=== PATIENT | male | born 1980 | race Caucasian/White ===

== ENCOUNTER 2020-10-19 11:07 | Inpatient (IN) | payer BC ==
[~2020-10-19] VITALS: Ht 190.5 cm; Wt 145.3 kg
[~2020-10-19 11:07] MED LIST: CIPROFLOXACIN500 MG PO; FLAGYL500 MG PO; LOMOTIL 0.025 M1 TA1 PO; METFORMIN1000 MG PO; NAPROSYN500 MG PO; NOVOLIN N100 U/ML SC; NOVOLOG 70/30 M10 ML SC; ZESTRIL2.5 MG PO; ZOFRAN ODT4 MG SL; ZOFRAN4 MG PO
[2020-10-19 11:33] VITALS: BP 160/86
[2020-10-19 12:19] LABS: BASO % 0.2 % (0.0-1.0); EOS % 0.2 % (1.0-4.0); HEMATOCRIT 41.5 % (42.0-52.0); LYMPH % 22.3 % (27.0-41.0); MEAN CELL VOLUME 86.1 fl (80.0-94.0); MEAN CORPUSCULAR HGB 28.2 pg (27.0-31.0); MEAN CORPUSCULAR HGB CONC 32.8 g/dl (33.0-37.0); MEAN PLATELET VOLUME 9.4 fl (9.6-12.3); MONO # 0.9 10*3/uL (0.1-1.0); MONO % 6.9 % (3.0-9.0); NEUT # 9.3 10*3/uL (2.3-7.9); NEUT % 70.1 % (47.0-73.0); PLATELET COUNT AUTOMATED 369 10*3/uL (130-400); RED BLOOD COUNT 4.82 10*6/uL (4.50-5.90); RED CELL DISTRI WIDTH 11.9 % (0-14.5); WHITE BLOOD COUNT 13.2 10*3/uL (4.8-10.8)
[2020-10-19 12:38] LABS: ALBUMIN 3.5 gm/dl (3.1-4.5); ALKALINE PHOSPHATASE 73 U/L (45-117); BUN 15 mg/dl (7-24); CHLORIDE 98 mmol/L (98-107); CREATININE 0.86 mg/dL (0.70-1.30); POTASSIUM 3.9 mmol/L (3.5-5.1); SGOT/AST 11 IU/L (3-35); SGPT/ALT 25 U/L (12-78); SODIUM 135 mmol/L (136-145); TOTAL PROTEIN 7.9 gm/dL (6.4-8.2)
--- NOTE | 2020-10-19 13:15 | NUR ---
unable to start iv due to patient being in [place]. Will start atb once pt is back.
[2020-10-19 16:00] VITALS: BP 130/77
[2020-10-19 17:20] VITALS: BP 130/77
--- NOTE | 2020-10-19 17:20 | NUR ---
Time: 1719 A 40 year old MALE admitted to 5E under services of KEVIN BRENNAN DO, Pt. arrived via bed from ER. Chief complaint: LEFT GREAT TOE WOUND. DERIK PIÑA
--- NOTE | 2020-10-19 17:58 | NUR ---
PODIATRY AWARE SEEN PT IN ED.
[2020-10-19 20:00] VITALS: BP 141/88
--- NOTE | 2020-10-19 21:00 | NUR ---
RESTING IN BED WITH NO ACUTE DISTRESS NOTED. RESPIRATIONS EASY. LUNGS DIMINISHED, CLEAR. PULSE OX 99% RA. LEFT PEDAL EDEMA NOTED WITH WOUND TO LEFT GREAT TOE. CALL LIGHT WITHIN REACH. NO VOICED COMPLAINTS
--- NOTE | 2020-10-19 23:55 | NUR ---
24 HR chart check completed.
[2020-10-20] VITALS: BP 140/82
--- NOTE | 2020-10-20 | NUR ---
SLEEPING. NO ACUTE DISTRESS NOTED. RESPIRATIONS EASY. VSS. IV FLUIDS INFUSING. CALL LIGHT WITHIN REACH
--- NOTE | 2020-10-20 06:00 | NUR ---
RESTED THROUGHOUT NIGHT WITH NO DISTRESS NOTED. RESPIRATIONS EASY. CALL LIGHT WITHIN REACH. NO VOICED COMPLAINTS THIS SHIFT
[2020-10-20 07:01] LABS: BASO % 0.3 % (0.0-1.0); EOS # 0.1 10*3/uL (0.0-0.4); EOS % 1.2 % (1.0-4.0); HEMATOCRIT 42.5 % (42.0-52.0); LYMPH # 2.7 10*3/uL (1.3-4.4); MEAN CELL VOLUME 90.2 fl (80.0-94.0); MEAN CORPUSCULAR HGB 28.5 pg (27.0-31.0); MEAN CORPUSCULAR HGB CONC 31.5 g/dl (33.0-37.0); MEAN PLATELET VOLUME 9.6 fl (9.6-12.3); MONO # 0.7 10*3/uL (0.1-1.0); MONO % 7.2 % (3.0-9.0); NEUT # 5.7 10*3/uL (2.3-7.9); PLATELET COUNT AUTOMATED 324 10*3/uL (130-400); RED BLOOD COUNT 4.71 10*6/uL (4.50-5.90); RED CELL DISTRI WIDTH 12.2 % (0-14.5); WHITE BLOOD COUNT 9.2 10*3/uL (4.8-10.8)
[2020-10-20 07:33] LABS: BUN 11 mg/dl (7-24); CHLORIDE 106 mmol/L (98-107); CHOLESTEROL 145 mg/dL (<200); CREATININE 0.67 mg/dL (0.70-1.30); SODIUM 140 mmol/L (136-145); TRIGLYCERIDES 83 mg/dl (<150); VLDL CHOLESTEROL 17 mg/dL (6-40)
[2020-10-20 07:34] LABS: HDL CHOLESTEROL 39 mg/dl (40-60); LDL CHOLESTEROL 89 mg/dL (9-159)
[2020-10-20 08:00] VITALS: BP 148/90
--- NOTE | 2020-10-20 08:23 | NUR ---
PT RESTING IN BED/ NO DISTRESS NOTED. WILL MONITOR
--- NOTE | 2020-10-20 09:00 | NUR ---
Hr Associate in to talk to patient. Patient states lives at home with his . There are 0 steps in the home. There are 8-9 outside steps. Physician: no family physician Pharmacy: [facility] Home health services: possibly [facility] on discharge Patient's level of ADLs: INDEPENDENT Patient has working utilities: yes DME: none Follow-up physician's appointment after d/c: will be made by the hospitalist nurse director upon discharge Does patient want to access PORTAL?: no Discharge plan discussed with patient. He lives at home with his . He is independent in his ADLs and ambulation. Discussed the possibility of a wound vac and IV antibiotics. Discussed short term rehab and he refuses. He states either himself or his would learn how to administer the IV antibiotics if needed. Discussed home health care services and he is agreeable. When provided with a list of agencies he chose [facility]. When medically stable he will be discharged to home. He states he drove himself here and plans to drive himself home. BAUDILIO HENLEY
--- NOTE | 2020-10-20 11:27 | NUR ---
DR GRANT ANSWERING SERVICE NOTIFIED OF CONSULT
[2020-10-20 12:00] VITALS: BP 152/84
[2020-10-20 16:00] VITALS: BP 150/76
--- NOTE | 2020-10-20 16:30 | NUR ---
DR VALLEJO NOTIFIED OF CONSULT
[2020-10-20 20:00] VITALS: BP 150/75
[2020-10-21] VITALS (8 sets, daily range): BP systolic 110–149; BP diastolic 67–81
[2020-10-21 06:24] LABS: BUN 9 mg/dl (7-24); CHLORIDE 103 mmol/L (98-107); CREATININE 0.73 mg/dL (0.70-1.30); SODIUM 138 mmol/L (136-145)
[2020-10-21 06:25] LABS: BASO % 0.3 % (0.0-1.0); EOS # 0.2 10*3/uL (0.0-0.4); EOS % 2.1 % (1.0-4.0); HEMATOCRIT 41.5 % (42.0-52.0); LYMPH # 2.3 10*3/uL (1.3-4.4); LYMPH % 29.6 % (27.0-41.0); MEAN CELL VOLUME 87.9 fl (80.0-94.0); MEAN CORPUSCULAR HGB 28.4 pg (27.0-31.0); MEAN CORPUSCULAR HGB CONC 32.3 g/dl (33.0-37.0); MEAN PLATELET VOLUME 9.3 fl (9.6-12.3); MONO # 0.6 10*3/uL (0.1-1.0); MONO % 7.2 % (3.0-9.0); NEUT # 4.7 10*3/uL (2.3-7.9); NEUT % 60.5 % (47.0-73.0); PLATELET COUNT AUTOMATED 363 10*3/uL (130-400); RED BLOOD COUNT 4.72 10*6/uL (4.50-5.90); RED CELL DISTRI WIDTH 11.9 % (0-14.5); WHITE BLOOD COUNT 7.7 10*3/uL (4.8-10.8)
--- NOTE | 2020-10-21 08:30 | NUR ---
PT RESTING IN BED. RESP-EASY AND REGULAR. DRESSING TO LEFT FOOT. IV started right hand with #22 angiocath after 1 attempts. The IV site was prepped with Chloraprep. Heparin lock attached. Sterile dressing applied. Patient tolerated precedure well. Procedure performed according to [facility] policy & procedure. CALL LIGHT IN REACH. SEE SHIFT ASSESSMENT. ANA HERRING R
--- NOTE | 2020-10-21 09:00 | NUR ---
CM in to see patient. No new needs or request at this time. Discussed home health care services and he is agreeable if needed. He is scheduled for foot surgery today. CM will continue to follow for any discharge planning needs.
--- NOTE | 2020-10-21 10:40 | NUR ---
PT ESCORTED VIA BED TO SURGERY.
--- NOTE | 2020-10-21 12:26 | NUR ---
PT RESTING IN BED. DRESSING LEFT FOOT D/I. BSG-234, SEE EMAR. CALL LIGHT IN REACH. SEE SHIFT ASSESSMENT.
--- NOTE | 2020-10-21 13:46 | NUR ---
CM in to speak with patient. He would like to know when he is going to be discharged. Asked hospitalist nurse director to ask physician to speak with patient. Explained to patient CM is not able to discharge patient until physicians says he is medically stable to be discharged and any home needs would need to be set up. He verbalized an understanding. Dr. Benton to see patient per hospitalist nurse director.
--- NOTE | 2020-10-21 16:17 | NUR ---
RESTING IN BED. TOLERATING IV MEDICATION. BSG-242, SEE EMAR. CALL LIGHT IN REACH. SEE SHIFT ASSESSMENT.
--- NOTE | 2020-10-21 21:18 | NUR ---
RESTING IN BED. BSG-273, SEE EMAR. TOLERATING IV ANTIBIOTICS WITH NO PROBLEM. CALL LIGHT IN REACH.
[2020-10-22] VITALS: BP 129/76
--- NOTE | 2020-10-22 | NUR ---
PT RESTING QUIETLY IN BED WHITH EYES CLOSED. PT AROUSES FOR ASSESSMENT. PT DENIES ANY C/O AT THIS TIME.
--- NOTE | 2020-10-22 05:30 | NUR ---
FBS 192. PLEASE SEE EMAR FOR MEDICATION ADMINISTRATION.
--- NOTE | 2020-10-22 06:42 | NUR ---
24 HR chart check completed.
[2020-10-22 07:07] LABS: BASO % 0.3 % (0.0-1.0); EOS # 0.2 10*3/uL (0.0-0.4); EOS % 2.9 % (1.0-4.0); HEMATOCRIT 42.8 % (42.0-52.0); LYMPH # 2.5 10*3/uL (1.3-4.4); LYMPH % 31.4 % (27.0-41.0); MEAN CORPUSCULAR HGB 28.3 pg (27.0-31.0); MEAN CORPUSCULAR HGB CONC 32.5 g/dl (33.0-37.0); MEAN PLATELET VOLUME 9.3 fl (9.6-12.3); MONO # 0.6 10*3/uL (0.1-1.0); NEUT # 4.6 10*3/uL (2.3-7.9); NEUT % 58.1 % (47.0-73.0); PLATELET COUNT AUTOMATED 370 10*3/uL (130-400); RED BLOOD COUNT 4.92 10*6/uL (4.50-5.90); RED CELL DISTRI WIDTH 12.1 % (0-14.5)
[2020-10-22 07:43] LABS: BUN 10 mg/dl (7-24); CHLORIDE 103 mmol/L (98-107); CREATININE 0.71 mg/dL (0.70-1.30); SODIUM 139 mmol/L (136-145)
[2020-10-22 08:00] VITALS: BP 123/65
--- NOTE | 2020-10-22 09:00 | NUR ---
CM in to see patient. No new needs or request at this time. Discussed home health care services and he is agreeable if needed. He may need IV antibiotics at home. CM will continue to follow for any discharge planning needs. When medically stable he will be discharged to home.
[2020-10-22 12:00] VITALS: BP 138/86
--- NOTE | 2020-10-22 12:00 | NUR ---
Nutritional Support Services Note: Instructed pt on diabetic diet. Diet copy given to pt. HgbA1c 11.9. Stressed importance of three meals a day and a night snack. Discussed healthy eating options. He normally only eats one meal a day and drinks many Monster drinks throughout the day. Stressed importance of compliance to diet. Encouraged follow up if needed. Rosalie Olsen Rdn Ld
[2020-10-22 14:13] LABS: ACID FAST SPEC PROCESSING Tissue Grinding (.)
[2020-10-22 16:00] VITALS: BP 122/86
--- NOTE | 2020-10-22 16:35 | NUR ---
IN TO SEE PT. RECOMMENDING OUT PATIENT ANGIOGRAM FOLLOWING DISCHARGE.
[2020-10-22 20:00] VITALS: BP 133/83
--- NOTE | 2020-10-22 20:00 | NUR ---
PT RESTING IN BED DENIES PAIN. L FOOT DRSG DRY AND INTACT, NO C/O VOICED
[2020-10-23] VITALS: BP 131/75
--- NOTE | 2020-10-23 04:17 | NUR ---
RESPIRATIONS EVEN AND EASY
--- NOTE | 2020-10-23 06:43 | NUR ---
24 HR chart check completed.
--- NOTE | 2020-10-23 07:06 | NUR ---
DR TONEY NOTIFIED OF HG 7.4, HCT=22, AND PLTS OF 91
[2020-10-23 08:00] VITALS: BP 126/69
[2020-10-23 12:00] VITALS: BP 126/89
[2020-10-23 16:00] VITALS: BP 130/80
[2020-10-23 20:00] VITALS: BP 148/80
[2020-10-24] VITALS: BP 133/65
[2020-10-24 08:00] VITALS: BP 127/68
[2020-10-24 12:00] VITALS: BP 121/76
[2020-10-24 16:00] VITALS: BP 135/64
[2020-10-24 20:00] VITALS: BP 147/76
--- NOTE | 2020-10-24 22:53 | NUR ---
BLADDER SCANNED PATIENT FOR 319 CC URINE. STRAIGHT CATHED PATIENT FOR 650CC URINE. WILL CONTINUE TO MONITOR.
[2020-10-25] VITALS: BP 132/76
[2020-10-25 08:00] VITALS: BP 134/72
--- NOTE | 2020-10-25 09:42 | NUR ---
Patient signed out AMA. Patient encouraged to stay and advised of possible consequences of premature discharge. Physician MG SANCHEZ and toll collector supervisor WILLEM notified. Patient instructed what to do regarding care post-departure from the hospital; emergency phone numbers provided. Patent was accompanied by SELF. LEIGHA SHAHID
--- NOTE | 2020-10-25 09:42 | NUR ---
LEFT CAROL. STEVAN HOLLIDAY AWARE. [facility] WILLEM NOTIFIED
--- NOTE | 2020-10-25 09:53 | NUR ---
LEFT AMA, REFUSED PICS/MEASUREMENTS OF FOOT WOUND.
== END 2020-10-25 09:00 | disposition left against medical advice (07) | DRG 854 ==
LOC: ED 11:07 → EDHOLD 13:06 → 5E 13:06
PROVIDERS: Nurse Practitioner Family; Podiatrist; Student in an Organized Health Care Education/Training Program; ADMIT Internal Medicine; ATTEND Internal Medicine
PROC: 0JBR0ZZ Excision of Left Foot Subcutaneous Tissue and Fascia, Open Approach (ICD-10-PCS; principal; 2020-10-21)
PROC: 0QBR0ZX Excision of Left Toe Phalanx, Open Approach, Diagnostic (ICD-10-PCS; 2020-10-21)
DX: A41.9 Sepsis, unspecified organism (principal); L03.116 Cellulitis of left lower limb; M86.172 Other acute osteomyelitis, left ankle and foot; E87.1 Hypo-osmolality and hyponatremia; L02.612 Cutaneous abscess of left foot; M00.9 Pyogenic arthritis, unspecified; E11.65 Type 2 diabetes mellitus with hyperglycemia; D64.9 Anemia, unspecified; E11.621 Type 2 diabetes mellitus with foot ulcer; L97.529 Non-pressure chronic ulcer of other part of left foot with unspecified severity; Z53.29 Procedure and treatment not carried out because of patient's decision for other reasons; I70.203 Unspecified atherosclerosis of native arteries of extremities, bilateral legs; E11.69 Type 2 diabetes mellitus with other specified complication; M65.872 Other synovitis and tenosynovitis, left ankle and foot; F17.210 Nicotine dependence, cigarettes, uncomplicated; S92.902A Unspecified fracture of left foot, initial encounter for closed fracture; X58.XXXA Exposure to other specified factors, initial encounter; Y93.89 Activity, other specified; Y92.89 Other specified places as the place of occurrence of the external cause; Y99.8 Other external cause status; Z71.6 Tobacco abuse counseling; Z83.3 Family history of diabetes mellitus; Z79.4 Long term (current) use of insulin

== ENCOUNTER → 2020-11-09 | Outpatient (CLI) | payer BC | END | disposition home or self-care (01) | LOC: RESCLI 00:15 | PROVIDERS: ATTEND Internal Medicine | DX: L03.032 Cellulitis of left toe (principal); E11.65 Type 2 diabetes mellitus with hyperglycemia; I73.9 Peripheral vascular disease, unspecified; F17.210 Nicotine dependence, cigarettes, uncomplicated; Z79.4 Long term (current) use of insulin ==

== ENCOUNTER → 2020-11-24 | Outpatient (CLI) | payer BC | END | disposition home or self-care (01) | LOC: RESCLI 00:08 | PROVIDERS: ATTEND Internal Medicine | DX: L03.032 Cellulitis of left toe (principal); E11.65 Type 2 diabetes mellitus with hyperglycemia; I73.9 Peripheral vascular disease, unspecified; F17.210 Nicotine dependence, cigarettes, uncomplicated; Z79.4 Long term (current) use of insulin; Z79.899 Other long term (current) drug therapy ==

== ENCOUNTER → 2021-01-11 | Outpatient (CLI) | payer BC | END | disposition home or self-care (01) | LOC: LAB 11:57 | PROVIDERS: ATTEND Internal Medicine | DX: M86.9 Osteomyelitis, unspecified (principal) ==

== ENCOUNTER → 2021-02-04 | Outpatient (CLI) | payer BC | END | disposition home or self-care (01) | LOC: RESCLI 02:41 | PROVIDERS: ATTEND Internal Medicine | DX: I10 Essential (primary) hypertension (principal); E11.65 Type 2 diabetes mellitus with hyperglycemia; M86.9 Osteomyelitis, unspecified; F17.210 Nicotine dependence, cigarettes, uncomplicated; Z79.899 Other long term (current) drug therapy; Z79.84 Long term (current) use of oral hypoglycemic drugs ==

== ENCOUNTER → 2021-02-07 | Outpatient (CLI) | payer BC ==
[2021-02-07 13:50] LABS: FREE T4 0.95 ng/dl (0.76-1.46)
== END | disposition home or self-care (01) ==
LOC: LAB 11:47
PROVIDERS: Student in an Organized Health Care Education/Training Program; ATTEND Internal Medicine Nephrology
DX: Z79.899 Other long term (current) drug therapy (principal)

== ENCOUNTER → 2021-04-29 | Outpatient (CLI) | payer BC ==
[2021-04-29 11:36] LABS: HEMATOCRIT 42.4 % (42.0-52.0); MEAN CELL VOLUME 88.9 fl (80.0-94.0); MEAN CORPUSCULAR HGB 28.5 pg (27.0-31.0); MEAN CORPUSCULAR HGB CONC 32.1 g/dl (33.0-37.0); MEAN PLATELET VOLUME 9.3 fl (9.6-12.3); PLATELET COUNT AUTOMATED 350 10*3/uL (130-400); RED BLOOD COUNT 4.77 10*6/uL (4.50-5.90); RED CELL DISTRI WIDTH 12.9 % (0-14.5); WHITE BLOOD COUNT 12.5 10*3/uL (4.8-10.8)
[2021-04-29 11:54] LABS: ALBUMIN 3.6 gm/dl (3.1-4.5); BUN 15 mg/dl (7-24); CHLORIDE 104 mmol/L (98-107); CHOLESTEROL 208 mg/dL (<200); POTASSIUM 3.6 mmol/L (3.5-5.1); SGOT/AST 18 IU/L (3-35); SGPT/ALT 35 U/L (12-78); SODIUM 136 mmol/L (136-145); TRIGLYCERIDES 76 mg/dl (<150)
[2021-04-29 11:57] LABS: ATYPICAL LYMPHS 2 % (0-0); TOTAL CELLS COUNTED 100 #CELLS
[2021-04-29 11:58] LABS: PLATELET SUFFICIENCY NORMAL (NORMAL)
[2021-04-29 12:01] LABS: ALKALINE PHOSPHATASE 61 U/L (45-117); CREATININE 0.82 mg/dL (0.70-1.30); FREE T4 0.91 ng/dl (0.76-1.46); LDL CHOLESTEROL 142 mg/dL (9-159); TOTAL PROTEIN 7.7 gm/dL (6.4-8.2)
[2021-04-30 09:07] LABS: CREATININE,URINE 104.5 mg/dL (Not Estab.)
== END | disposition home or self-care (01) ==
LOC: RESCLI 01:01
PROVIDERS: Internal Medicine; ATTEND Internal Medicine
DX: I10 Essential (primary) hypertension (principal); E11.65 Type 2 diabetes mellitus with hyperglycemia; E78.5 Hyperlipidemia, unspecified; E03.9 Hypothyroidism, unspecified; E66.01 Morbid (severe) obesity due to excess calories; H35.30 Unspecified macular degeneration; I73.9 Peripheral vascular disease, unspecified; F17.210 Nicotine dependence, cigarettes, uncomplicated; Z79.84 Long term (current) use of oral hypoglycemic drugs; Z79.899 Other long term (current) drug therapy; Z71.6 Tobacco abuse counseling

== ENCOUNTER → 2021-06-08 | Outpatient (CLI) | payer BC ==
[2021-06-08 11:49] LABS: FREE T4 0.95 ng/dl (0.76-1.46)
[2021-06-08 11:58] LABS: THYROID STIM HORMONE (HS) 4.63 uIU/ml (0.358-4.75)
== END | disposition home or self-care (01) ==
LOC: RESCLI 00:48
PROVIDERS: Internal Medicine; ATTEND Internal Medicine
DX: E11.65 Type 2 diabetes mellitus with hyperglycemia (principal); F17.210 Nicotine dependence, cigarettes, uncomplicated; I73.9 Peripheral vascular disease, unspecified; I10 Essential (primary) hypertension; E78.5 Hyperlipidemia, unspecified; E03.9 Hypothyroidism, unspecified; E66.01 Morbid (severe) obesity due to excess calories; Z79.84 Long term (current) use of oral hypoglycemic drugs; Z79.899 Other long term (current) drug therapy

== ENCOUNTER → 2021-08-02 | Outpatient (CLI) | payer BC | END | disposition home or self-care (01) | LOC: COVID19 15:26 | PROVIDERS: ATTEND Hospitalist | DX: U07.1 COVID-19 (principal) ==

== ENCOUNTER 2021-08-28 16:49 | Inpatient (IN) | payer BC ==
[~2021-08-28] VITALS: Ht 190.5 cm; Wt 156.5 kg
[2021-08-28 16:57] VITALS: BP 163/86
[2021-08-28 22:56] LABS: BASO # 0.1 10*3/uL (0.0-0.1); BASO % 0.4 % (0.0-1.0); EOS # 0.1 10*3/uL (0.0-0.4); EOS % 1.1 % (1.0-4.0); HEMATOCRIT 41.8 % (42.0-52.0); LYMPH # 3.3 10*3/uL (1.3-4.4); LYMPH % 27.1 % (27.0-41.0); MEAN CELL VOLUME 88.2 fl (80.0-94.0); MEAN CORPUSCULAR HGB 28.1 pg (27.0-31.0); MEAN CORPUSCULAR HGB CONC 31.8 g/dl (33.0-37.0); MEAN PLATELET VOLUME 9.4 fl (9.6-12.3); MONO # 0.9 10*3/uL (0.1-1.0); MONO % 7.7 % (3.0-9.0); NEUT # 7.7 10*3/uL (2.3-7.9); NEUT % 63.4 % (47.0-73.0); PLATELET COUNT AUTOMATED 295 10*3/uL (130-400); RED BLOOD COUNT 4.74 10*6/uL (4.50-5.90); RED CELL DISTRI WIDTH 13.1 % (0-14.5); WHITE BLOOD COUNT 12.1 10*3/uL (4.8-10.8)
[2021-08-28 23:15] LABS: ALKALINE PHOSPHATASE 58 U/L (45-117); BUN 21 mg/dl (7-24); CHLORIDE 99 mmol/L (98-107); POTASSIUM 3.9 mmol/L (3.5-5.1); SGOT/AST 7 IU/L (3-35); SGPT/ALT 31 U/L (12-78); SODIUM 134 mmol/L (136-145); TOTAL PROTEIN 7.5 gm/dL (6.4-8.2)
[2021-08-28] MEDS ORDERED: LISINOPRIL5 MG PO (23:18)
[2021-08-28] MEDS ORDERED: NOVOLOG100 UNIT/1 SQ (23:19)
[2021-08-28] MEDS ORDERED: LANTUS SOL100 UNIT/1 SC (23:19)
[2021-08-28 23:20] LABS: TROPONIN I < 0.015 ng/ml (<0.045)
[2021-08-29 05:11] VITALS: BP 118/76
[2021-08-29 07:31] LABS: BASO % 0.2 % (0.0-1.0); EOS # 0.1 10*3/uL (0.0-0.4); HEMATOCRIT 40.3 % (42.0-52.0); LYMPH # 2.5 10*3/uL (1.3-4.4); LYMPH % 24.9 % (27.0-41.0); MEAN CELL VOLUME 87.6 fl (80.0-94.0); MEAN CORPUSCULAR HGB 27.6 pg (27.0-31.0); MEAN CORPUSCULAR HGB CONC 31.5 g/dl (33.0-37.0); MEAN PLATELET VOLUME 9.2 fl (9.6-12.3); MONO # 0.8 10*3/uL (0.1-1.0); NEUT # 6.6 10*3/uL (2.3-7.9); NEUT % 65.5 % (47.0-73.0); PLATELET COUNT AUTOMATED 270 10*3/uL (130-400); RED CELL DISTRI WIDTH 13.2 % (0-14.5)
[2021-08-29 07:54] LABS: ALBUMIN 2.8 gm/dl (3.1-4.5); ALKALINE PHOSPHATASE 57 U/L (45-117); BUN 15 mg/dl (7-24); CHLORIDE 103 mmol/L (98-107); CREATININE 0.66 mg/dL (0.70-1.30); POTASSIUM 4.3 mmol/L (3.5-5.1); SGOT/AST 10 IU/L (3-35); SGPT/ALT 28 U/L (12-78); SODIUM 136 mmol/L (136-145); TOTAL PROTEIN 6.9 gm/dL (6.4-8.2)
[2021-08-29 08:41] VITALS: BP 135/76
[2021-08-30 06:24] VITALS: BP 132/76
[2021-08-30 07:15] VITALS: BP 129/78
== END 2021-08-30 13:08 | disposition home or self-care (01) | DRG 872 ==
LOC: ED 16:49 → EDHOLD 08-29 02:37
PROVIDERS: Internal Medicine; Physician Assistant; ADMIT Internal Medicine; ATTEND Internal Medicine
DX: A41.9 Sepsis, unspecified organism (principal); I96 Gangrene, not elsewhere classified; E87.1 Hypo-osmolality and hyponatremia; E44.1 Mild protein-calorie malnutrition; L03.115 Cellulitis of right lower limb; E11.52 Type 2 diabetes mellitus with diabetic peripheral angiopathy with gangrene; E11.628 Type 2 diabetes mellitus with other skin complications; E11.42 Type 2 diabetes mellitus with diabetic polyneuropathy; E11.65 Type 2 diabetes mellitus with hyperglycemia; D64.9 Anemia, unspecified; F17.210 Nicotine dependence, cigarettes, uncomplicated; I10 Essential (primary) hypertension; E83.41 Hypermagnesemia; Z79.4 Long term (current) use of insulin; Z71.6 Tobacco abuse counseling; Z83.3 Family history of diabetes mellitus; Z79.899 Other long term (current) drug therapy

== ENCOUNTER → 2021-09-20 | Outpatient (CLI) | payer BC ==
[~2021-09-20] MED LIST changes: +ASPIRIN FOR CHI81 MG PO; +JARDIANCE25 MG PO; +LANTUS SOL100 UNIT/1 SC; +LISINOPRIL5 MG PO; +METFORMIN HYD1000 MG PO; +NOVOLOG100 UNIT/1 SQ; +PLAVIX75 M1 PO; +Synthroid,Levo50 MCG PO; +ULTRAM50 MG PO; +VIBRAMYCIN100 MG PO; +XARELTO10 MG PO
== END | disposition home or self-care (01) ==
LOC: RESCLI 06:43
PROVIDERS: ATTEND Emergency Medicine
DX: Z01.818 Encounter for other preprocedural examination (principal); E11.65 Type 2 diabetes mellitus with hyperglycemia; I73.9 Peripheral vascular disease, unspecified; F17.210 Nicotine dependence, cigarettes, uncomplicated; I10 Essential (primary) hypertension; E78.5 Hyperlipidemia, unspecified; E03.9 Hypothyroidism, unspecified; E66.01 Morbid (severe) obesity due to excess calories; H35.30 Unspecified macular degeneration; Z98.890 Other specified postprocedural states; Z79.84 Long term (current) use of oral hypoglycemic drugs; Z79.899 Other long term (current) drug therapy

== ENCOUNTER → 2021-09-28 | Day surgery (SDC) | payer BC ==
[~2021-09-28] VITALS: Ht 190.5 cm; Wt 145.1 kg
[2021-09-28 10:47] VITALS: BP 142/76
[2021-09-28 12:40] VITALS: BP 115/58
[2021-09-28 12:55] VITALS: BP 143/76
[2021-09-28 14:06] VITALS: BP 119/58
[2021-09-29 10:07] LABS: ACID FAST SPEC PROCESSING Tissue Grinding (.)
== END ==
LOC: SDC 09-23 11:00
PROVIDERS: ATTEND Podiatrist
DX: I96 Gangrene, not elsewhere classified (principal); I10 Essential (primary) hypertension; E11.51 Type 2 diabetes mellitus with diabetic peripheral angiopathy without gangrene; F17.210 Nicotine dependence, cigarettes, uncomplicated; E11.65 Type 2 diabetes mellitus with hyperglycemia; E78.5 Hyperlipidemia, unspecified; E03.9 Hypothyroidism, unspecified; E66.01 Morbid (severe) obesity due to excess calories; H35.30 Unspecified macular degeneration; Z79.899 Other long term (current) drug therapy; Z20.822 Contact with and (suspected) exposure to COVID-19

== ENCOUNTER → 2022-02-28 | Outpatient (CLI) | payer BC | END | disposition home or self-care (01) | LOC: RESCLI 00:33 | PROVIDERS: ATTEND Internal Medicine | DX: E11.65 Type 2 diabetes mellitus with hyperglycemia (principal); I73.9 Peripheral vascular disease, unspecified; F17.210 Nicotine dependence, cigarettes, uncomplicated; H35.30 Unspecified macular degeneration; E66.01 Morbid (severe) obesity due to excess calories; E03.9 Hypothyroidism, unspecified; E78.5 Hyperlipidemia, unspecified; I10 Essential (primary) hypertension; Z79.899 Other long term (current) drug therapy ==

== ENCOUNTER → 2022-03-02 | Outpatient (CLI) | payer BC ==
[2022-03-02 15:00] LABS: BASO # 0.1 10*3/uL (0.0-0.1); BASO % 0.5 % (0.0-1.0); EOS # 0.1 10*3/uL (0.0-0.4); EOS % 1.1 % (1.0-4.0); HEMATOCRIT 47.3 % (42.0-52.0); LYMPH # 3.5 10*3/uL (1.3-4.4); LYMPH % 32.7 % (27.0-41.0); MEAN CELL VOLUME 85.7 fl (80.0-94.0); MEAN CORPUSCULAR HGB 28.6 pg (27.0-31.0); MEAN CORPUSCULAR HGB CONC 33.4 g/dl (33.0-37.0); MEAN PLATELET VOLUME 9.3 fl (9.6-12.3); MONO # 0.6 10*3/uL (0.1-1.0); MONO % 5.8 % (3.0-9.0); NEUT # 6.4 10*3/uL (2.3-7.9); NEUT % 59.5 % (47.0-73.0); PLATELET COUNT AUTOMATED 326 10*3/uL (130-400); RED BLOOD COUNT 5.52 10*6/uL (4.50-5.90); WHITE BLOOD COUNT 10.8 10*3/uL (4.8-10.8)
[2022-03-02 15:20] LABS: ALKALINE PHOSPHATASE 65 U/L (45-117); BUN 17 mg/dl (7-24); CHLORIDE 103 mmol/L (98-107); CHOLESTEROL 224 mg/dL (<200); CREATININE 0.68 mg/dL (0.70-1.30); LDL CHOLESTEROL 134 mg/dL (9-159); POTASSIUM 4.4 mmol/L (3.5-5.1); SGOT/AST 20 IU/L (3-35); SGPT/ALT 40 U/L (12-78); SODIUM 135 mmol/L (136-145); TOTAL PROTEIN 7.9 gm/dL (6.4-8.2); TRIGLYCERIDES 238 mg/dl (<150)
== END | disposition home or self-care (01) ==
LOC: LAB 14:32
PROVIDERS: Hospitalist; ATTEND Internal Medicine
DX: E11.65 Type 2 diabetes mellitus with hyperglycemia (principal); E03.9 Hypothyroidism, unspecified; E66.01 Morbid (severe) obesity due to excess calories

== ENCOUNTER → 2022-03-10 | Outpatient (CLI) | payer BC | END | disposition home or self-care (01) | LOC: MRI 12:35 | PROVIDERS: ATTEND Podiatrist Foot & Ankle Surgery | DX: S91.012A Laceration without foreign body, left ankle, initial encounter (principal); M25.472 Effusion, left ankle; M19.072 Primary osteoarthritis, left ankle and foot; X58.XXXA Exposure to other specified factors, initial encounter; Y93.89 Activity, other specified; Y92.89 Other specified places as the place of occurrence of the external cause; Y99.8 Other external cause status ==

== ENCOUNTER → 2022-12-06 | Outpatient (CLI) | payer BC | END | disposition home or self-care (01) | LOC: US 12:19 | PROVIDERS: ATTEND Podiatrist Foot & Ankle Surgery | DX: R60.0 Localized edema (principal) ==

== ENCOUNTER → 2023-03-01 | Outpatient (CLI) | payer BC | END | disposition home or self-care (01) | LOC: RESCLI 00:52 | PROVIDERS: ATTEND Emergency Medicine | DX: E11.65 Type 2 diabetes mellitus with hyperglycemia (principal); I10 Essential (primary) hypertension; E03.9 Hypothyroidism, unspecified; I73.9 Peripheral vascular disease, unspecified; E78.5 Hyperlipidemia, unspecified; E66.01 Morbid (severe) obesity due to excess calories; F17.210 Nicotine dependence, cigarettes, uncomplicated; M86.9 Osteomyelitis, unspecified; F17.200 Nicotine dependence, unspecified, uncomplicated; Z82.3 Family history of stroke; Z79.84 Long term (current) use of oral hypoglycemic drugs; Z79.899 Other long term (current) drug therapy ==

== ENCOUNTER → 2023-03-30 | Outpatient (CLI) | payer BC | LOC: MRI 13:00 | PROVIDERS: ATTEND Nurse Practitioner | DX: M86.672 Other chronic osteomyelitis, left ankle and foot (principal); M25.872 Other specified joint disorders, left ankle and foot ==

== ENCOUNTER 2023-04-19 13:44 | Emergency (ER) | payer BC ==
[~2023-04-19] VITALS: Ht 190.5 cm; Wt 152.0 kg
[2023-04-19] MEDS ORDERED: LISINOPRIL20 MG PO (14:11)
[2023-04-19] MEDS ORDERED: LANTUS SOL100 UNIT/1 SQ (14:12)
[2023-04-19 14:54] LABS: BASO % 0.4 % (0.0-1.0); EOS # 0.1 10*3/uL (0.0-0.4); HEMATOCRIT 43.5 % (42.0-52.0); LYMPH % 36.7 % (27.0-41.0); MEAN CELL VOLUME 85.3 fl (80.0-94.0); MEAN CORPUSCULAR HGB 28.8 pg (27.0-31.0); MEAN CORPUSCULAR HGB CONC 33.8 g/dl (33.0-37.0); MEAN PLATELET VOLUME 9.5 fl (9.6-12.3); MONO # 0.6 10*3/uL (0.1-1.0); MONO % 7.1 % (3.0-9.0); NEUT # 4.5 10*3/uL (2.3-7.9); NEUT % 54.6 % (47.0-73.0); PLATELET COUNT AUTOMATED 315 10*3/uL (130-400); WHITE BLOOD COUNT 8.3 10*3/uL (4.8-10.8)
[2023-04-19 15:16] VITALS: BP 129/79
[2023-04-19 15:21] LABS: ALKALINE PHOSPHATASE 60 U/L (46-116); BUN 15 mg/dl (9-23); CHLORIDE 99 mmol/L (98-107); SGPT/ALT 36 U/L (10-49); TOTAL PROTEIN 7.1 gm/dL (6.0-8.0)
== END 2023-04-19 15:32 | disposition home or self-care (01) ==
LOC: ED 13:44
PROVIDERS: Student in an Organized Health Care Education/Training Program
DX: I10 Essential (primary) hypertension (principal); F17.200 Nicotine dependence, unspecified, uncomplicated; Z79.4 Long term (current) use of insulin; Z79.899 Other long term (current) drug therapy

== ENCOUNTER → 2023-06-21 | Outpatient (CLI) | payer BC ==
[~2023-06-21] MED LIST changes: +LANTUS SOL100 UNIT/1 SQ; +LISINOPRIL20 MG PO
[2023-06-21 10:46] LABS: BASO % 0.4 % (0.0-1.0); EOS # 0.1 10*3/uL (0.0-0.4); EOS % 1.4 % (1.0-4.0); HEMATOCRIT 44.8 % (42.0-52.0); LYMPH # 3.3 10*3/uL (1.3-4.4); MEAN CELL VOLUME 87.7 fl (80.0-94.0); MEAN PLATELET VOLUME 9.4 fl (9.6-12.3); MONO # 0.8 10*3/uL (0.1-1.0); MONO % 8.3 % (3.0-9.0); NEUT # 5.1 10*3/uL (2.3-7.9); NEUT % 54.6 % (47.0-73.0); PLATELET COUNT AUTOMATED 359 10*3/uL (130-400); RED BLOOD COUNT 5.11 10*6/uL (4.50-5.90); RED CELL DISTRI WIDTH 13.1 % (0-14.5); WHITE BLOOD COUNT 9.3 10*3/uL (4.8-10.8)
[2023-06-21 11:24] LABS: ALKALINE PHOSPHATASE 76 U/L (46-116); BUN 24 mg/dl (9-23); CHLORIDE 99 mmol/L (98-107); CHOLESTEROL 211 mg/dL (<200); LDL CHOLESTEROL 141 mg/dL (9-159); POTASSIUM 4.1 mmol/L (3.4-5.1); SGPT/ALT 26 U/L (10-49); TOTAL PROTEIN 7.6 gm/dL (6.0-8.0); TRIGLYCERIDES 155 mg/dl (<150)
== END | disposition home or self-care (01) ==
LOC: LAB 10:14
PROVIDERS: ATTEND Internal Medicine
DX: E78.5 Hyperlipidemia, unspecified (principal); E11.65 Type 2 diabetes mellitus with hyperglycemia; M86.9 Osteomyelitis, unspecified

== ENCOUNTER → 2023-06-26 | Outpatient (CLI) | payer BC | END | disposition home or self-care (01) | LOC: RESCLI 02:16 | PROVIDERS: ATTEND Family Medicine | DX: E03.9 Hypothyroidism, unspecified (principal); E11.9 Type 2 diabetes mellitus without complications; E78.5 Hyperlipidemia, unspecified; G62.9 Polyneuropathy, unspecified; F17.210 Nicotine dependence, cigarettes, uncomplicated; Z98.890 Other specified postprocedural states; Z82.3 Family history of stroke; Z79.899 Other long term (current) drug therapy ==

== ENCOUNTER → 2023-10-18 | Outpatient (CLI) | payer BC ==
[2023-10-18 10:40] LABS: BASO % 0.4 % (0.0-1.0); EOS # 0.1 10*3/uL (0.0-0.4); EOS % 1.5 % (1.0-4.0); HEMATOCRIT 44.3 % (42.0-52.0); LYMPH % 41.5 % (27.0-41.0); MEAN CELL VOLUME 86.2 fl (80.0-94.0); MEAN CORPUSCULAR HGB 28.4 pg (27.0-31.0); MEAN PLATELET VOLUME 9.1 fl (9.6-12.3); MONO # 0.6 10*3/uL (0.1-1.0); MONO % 8.7 % (3.0-9.0); NEUT # 3.5 10*3/uL (2.3-7.9); NEUT % 47.6 % (47.0-73.0); PLATELET COUNT AUTOMATED 332 10*3/uL (130-400); RED BLOOD COUNT 5.14 10*6/uL (4.50-5.90); WHITE BLOOD COUNT 7.3 10*3/uL (4.8-10.8)
[2023-10-18 11:17] LABS: ALKALINE PHOSPHATASE 67 U/L (46-116); BUN 10 mg/dl (9-23); CHLORIDE 101 mmol/L (98-107); POTASSIUM 3.8 mmol/L (3.4-5.1); SGPT/ALT 25 U/L (5-49); TOTAL PROTEIN 7.3 gm/dL (6.0-8.0)
== END | disposition home or self-care (01) ==
LOC: RESCLI 00:40
PROVIDERS: Student in an Organized Health Care Education/Training Program; ATTEND Student in an Organized Health Care Education/Training Program
DX: Z00.00 Encounter for general adult medical examination without abnormal findings (principal); E11.9 Type 2 diabetes mellitus without complications; E03.9 Hypothyroidism, unspecified; F17.210 Nicotine dependence, cigarettes, uncomplicated; E78.5 Hyperlipidemia, unspecified; G62.9 Polyneuropathy, unspecified; K27.9 Peptic ulcer, site unspecified, unspecified as acute or chronic, without hemorrhage or perforation; M54.9 Dorsalgia, unspecified; Z79.899 Other long term (current) drug therapy; Z82.3 Family history of stroke; Z98.890 Other specified postprocedural states

== ENCOUNTER → 2023-12-27 | Outpatient (CLI) | payer BC ==
[2023-12-27 10:55] LABS: URINE CREATININE RANDOM 44.14 mg/dL
== END | disposition home or self-care (01) ==
LOC: RESCLI 00:52
PROVIDERS: Student in an Organized Health Care Education/Training Program; ATTEND Family Medicine
DX: E11.40 Type 2 diabetes mellitus with diabetic neuropathy, unspecified (principal); E03.9 Hypothyroidism, unspecified; E78.5 Hyperlipidemia, unspecified; K27.0 Acute peptic ulcer, site unspecified, with hemorrhage; F17.210 Nicotine dependence, cigarettes, uncomplicated; Z82.3 Family history of stroke; K27.9 Peptic ulcer, site unspecified, unspecified as acute or chronic, without hemorrhage or perforation; M65.4 Radial styloid tenosynovitis [de Quervain]; M54.9 Dorsalgia, unspecified; Z98.890 Other specified postprocedural states; Z79.899 Other long term (current) drug therapy

== ENCOUNTER → 2024-01-08 | Outpatient (CLI) | payer BC | END | disposition home or self-care (01) | LOC: RAD 09:13 | PROVIDERS: ATTEND Internal Medicine | DX: M48.8X7 Other specified spondylopathies, lumbosacral region (principal); M54.9 Dorsalgia, unspecified ==

== ENCOUNTER → 2024-03-27 | Outpatient (CLI) | payer BC | END | disposition home or self-care (01) | LOC: RESCLI 00:56 | PROVIDERS: ATTEND Internal Medicine | DX: Z00.00 Encounter for general adult medical examination without abnormal findings (principal); E03.9 Hypothyroidism, unspecified; E11.9 Type 2 diabetes mellitus without complications; E78.5 Hyperlipidemia, unspecified; G62.9 Polyneuropathy, unspecified; E27.9 Disorder of adrenal gland, unspecified; M65.4 Radial styloid tenosynovitis [de Quervain]; M54.9 Dorsalgia, unspecified; Z71.6 Tobacco abuse counseling; L97.529 Non-pressure chronic ulcer of other part of left foot with unspecified severity; Z79.899 Other long term (current) drug therapy; Z88.8 Allergy status to other drugs, medicaments and biological substances; Z98.890 Other specified postprocedural states ==

== ENCOUNTER 2024-06-03 11:54 | Emergency (ER) | payer BC ==
[~2024-06-03] VITALS: Ht 190.5 cm; Wt 149.7 kg
[2024-06-03 12:13] VITALS: BP 118/69
[2024-06-03 17:37] LABS: BASO # 0.1 10*3/uL (0.0-0.1); BASO % 0.5 % (0.0-1.0); EOS # 0.1 10*3/uL (0.0-0.4); EOS % 1.2 % (1.0-4.0); LYMPH # 3.8 10*3/uL (1.3-4.4); LYMPH % 36.9 % (27.0-41.0); MEAN CELL VOLUME 86.2 fl (80.0-94.0); MEAN CORPUSCULAR HGB 28.9 pg (27.0-31.0); MEAN CORPUSCULAR HGB CONC 33.5 g/dl (33.0-37.0); MEAN PLATELET VOLUME 9.5 fl (9.6-12.3); MONO # 0.7 10*3/uL (0.1-1.0); MONO % 6.8 % (3.0-9.0); NEUT # 5.6 10*3/uL (2.3-7.9); NEUT % 54.3 % (47.0-73.0); PLATELET COUNT AUTOMATED 343 10*3/uL (130-400); RED BLOOD COUNT 4.99 10*6/uL (4.50-5.90); RED CELL DISTRI WIDTH 13.3 % (0-14.5); WHITE BLOOD COUNT 10.3 10*3/uL (4.8-10.8)
[2024-06-03 17:48] LABS: ACT PARTIAL THROMBO TIME 26.9 SECONDS (20.0-32.1)
[2024-06-03 18:02] LABS: ALKALINE PHOSPHATASE 69 U/L (46-116); BUN 27 mg/dl (9-23); CHLORIDE 98 mmol/L (98-107); POTASSIUM 3.9 mmol/L (3.4-5.1); SGPT/ALT 22 U/L (5-49); TOTAL PROTEIN 7.2 gm/dL (6.0-8.0)
[2024-06-03] MEDS ORDERED: SODIUM CHLORIDE 0.9% 1,000 ML IV ONE (18:05)
[2024-06-03 18:08] LABS: BILIRUBIN Negative (Negative); BLOOD Negative (Negative); CLARITY Clear (Clear); COLOR Yellow (Yellow); GLUCOSE 3+ (Negative); KETONE Negative (Negative); LEUKO ESTERASE Negative (Negative); NITRITE Negative (Negative); PH 5.5 (4.5-8.0); SPECIFIC GRAVITY >= 1.030 (1.001-1.030); UROBILINOGEN 0.2 E.U./dl (0.0-1.0)
[2024-06-03 18:16] LABS: EPITHELIAL CELLS 0-2; MUCOUS 1+; WBC 0-2 wbc/hpf (0-5)
== END 2024-06-03 22:20 | disposition home or self-care (01) ==
LOC: ED 11:54
PROVIDERS: Internal Medicine
DX: E86.0 Dehydration (principal); E11.51 Type 2 diabetes mellitus with diabetic peripheral angiopathy without gangrene; F17.210 Nicotine dependence, cigarettes, uncomplicated; Z79.899 Other long term (current) drug therapy; Z79.4 Long term (current) use of insulin

== ENCOUNTER → 2024-06-16 | Outpatient (CLI) | payer BC | END | disposition home or self-care (01) | LOC: US 10:01 | PROVIDERS: ATTEND Internal Medicine Cardiovascular Disease | DX: I73.9 Peripheral vascular disease, unspecified (principal); I10 Essential (primary) hypertension; E66.01 Morbid (severe) obesity due to excess calories ==

== ENCOUNTER → 2024-07-04 | Outpatient (CLI) | payer BC | END | disposition home or self-care (01) | LOC: CARD 08:22 | PROVIDERS: ATTEND Internal Medicine Cardiovascular Disease | DX: R55 Syncope and collapse (principal); E11.9 Type 2 diabetes mellitus without complications ==

== ENCOUNTER → 2024-07-10 | Outpatient (CLI) | payer BC ==
[2024-07-10 12:10] LABS: BASO # 0.1 10*3/uL (0.0-0.1); BASO % 0.4 % (0.0-1.0); EOS # 0.1 10*3/uL (0.0-0.4); HEMATOCRIT 46.9 % (42.0-52.0); LYMPH # 3.8 10*3/uL (1.3-4.4); LYMPH % 32.1 % (27.0-41.0); MEAN CELL VOLUME 88.7 fl (80.0-94.0); MEAN CORPUSCULAR HGB 28.5 pg (27.0-31.0); MEAN CORPUSCULAR HGB CONC 32.2 g/dl (33.0-37.0); MEAN PLATELET VOLUME 9.3 fl (9.6-12.3); MONO # 0.7 10*3/uL (0.1-1.0); MONO % 6.3 % (3.0-9.0); NEUT % 59.9 % (47.0-73.0); PLATELET COUNT AUTOMATED 336 10*3/uL (130-400); RED BLOOD COUNT 5.29 10*6/uL (4.50-5.90); RED CELL DISTRI WIDTH 13.1 % (0-14.5); WHITE BLOOD COUNT 11.7 10*3/uL (4.8-10.8)
[2024-07-10 12:30] LABS: ALKALINE PHOSPHATASE 64 U/L (46-116); BUN 17 mg/dl (9-23); CHLORIDE 98 mmol/L (98-107); CHOLESTEROL 253 mg/dL (<200); LDL CHOLESTEROL 167 mg/dL (9-159); POTASSIUM 4.1 mmol/L (3.4-5.1); SGPT/ALT 31 U/L (5-49); TOTAL PROTEIN 7.6 gm/dL (6.0-8.0); TRIGLYCERIDES 179 mg/dl (<150)
[2024-07-10 12:47] LABS: FREE T4 1.15 ng/dl (0.89-1.76)
== END | disposition home or self-care (01) ==
LOC: RESCLI 02:00
PROVIDERS: ATTEND Student in an Organized Health Care Education/Training Program
DX: E11.65 Type 2 diabetes mellitus with hyperglycemia (principal); E11.51 Type 2 diabetes mellitus with diabetic peripheral angiopathy without gangrene; E78.5 Hyperlipidemia, unspecified; E66.01 Morbid (severe) obesity due to excess calories; E03.9 Hypothyroidism, unspecified; I10 Essential (primary) hypertension; Z98.890 Other specified postprocedural states; Z79.899 Other long term (current) drug therapy; Z79.84 Long term (current) use of oral hypoglycemic drugs

== ENCOUNTER → 2024-09-22 | Outpatient (CLI) | payer BC ==
[2024-09-22 11:30] LABS: ALKALINE PHOSPHATASE 66 U/L (46-116); BUN 13 mg/dl (9-23); CHLORIDE 98 mmol/L (98-107); CHOLESTEROL 177 mg/dL (<200); FREE T4 1.23 ng/dl (0.89-1.76); LDL CHOLESTEROL 98 mg/dL (9-159); POTASSIUM 4.5 mmol/L (3.4-5.1); SGPT/ALT 37 U/L (5-49); TOTAL PROTEIN 7.5 gm/dL (6.0-8.0); TRIGLYCERIDES 193 mg/dl (<150)
== END | disposition home or self-care (01) ==
LOC: LAB 10:12
PROVIDERS: Student in an Organized Health Care Education/Training Program; ATTEND Internal Medicine Endocrinology, Diabetes & Metabolism
DX: E11.65 Type 2 diabetes mellitus with hyperglycemia (principal); E03.9 Hypothyroidism, unspecified